=== PATIENT | male | born 1990 | race African-American/Black ===

== ENCOUNTER 2017-10-29 15:04 | Emergency (ER) | payer MEDICAID ==
[~2017-10-29] VITALS: Ht 175.3 cm; Wt 64.0 kg
[2017-10-29] MEDS ORDERED: SODIUM CHLORIDE 0.9% 1,000 ML IV ONE (15:32)
[2017-10-29] MEDS ORDERED: MIDAZOLAM HCL 2 MG/2 ML VIAL IM ONE (15:45)
[2017-10-29] MEDS ORDERED: OLANZAPINE 10 MG/VIAL IM ONE (15:45)
[2017-10-29 16:12] LABS: BASOPHILS % 0.3 % (0.0-2.0); EOSINOPHILS % 2.8 % (0.0-5.0); HEMATOCRIT. 41.7 % (42.0-52.0); HEMOGLOBIN. 14.2 g/dL (14.0-18.0); LYMPHOCYTES % 35.3 % (20.0-50.0); MEAN CORPUSCULAR HEMOGLOBIN 27.3 pg (28.0-32.0); MEAN CORPUSCULAR VOLUME 80.5 fL (80.0-94.0); MEAN PLATELET VOLUME 8.2 fl (7.4-10.4); MONOCYTES % 12.7 % (2.0-8.0); NEUTROPHILS % 48.9 % (40.0-76.0); PLATELET 196 x1000/uL (130-400); RED BLOOD CELL COUNT 5.19 mill/uL (4.7-6.1); RED CELL DISTRIBUTION WIDTH 13.8 % (11.6-14.6)
[2017-10-29 16:23] LABS: CHLORIDE 109 mEq/L (98-107); ETHANOL BLOOD < 10 mg/dL
[2017-10-29] MEDS ORDERED: HALOPERIDOL 5MG TABLET PO ONE (17:30)
[2017-10-29] MEDS ORDERED: HALOPERIDOL LACTATE 5MG/ML VIAL IM ONE ×4 (17:55→19:00)
[2017-10-29] MEDS ORDERED: LORAZEPAM 2MG/ML CPJ IM STA (18:56)
[2017-10-30] MEDS: LORAZEPAM 2MG/ML CPJ IM PRN ×2 (13:27→13:29)
[2017-10-30] MEDS ORDERED: OLANZAPINE 10 MG/VIAL IM ONE (15:15)
[2017-10-31] MEDS ORDERED: MIDAZOLAM HCL 2 MG/2 ML VIAL IM ONE (10:30)
[2017-10-31] MEDS ORDERED: OLANZAPINE 10 MG/VIAL IM ONE (10:30)
[2017-10-31] MEDS: LORAZEPAM 2MG/ML CPJ IM PRN (16:39)
[2017-10-31] MEDS ORDERED: HALOPERIDOL LACTATE 5MG/ML VIAL IM ONE (20:15)
[2017-11-01] MEDS ORDERED: HALOPERIDOL LACTATE 5MG/ML VIAL IM ONE (09:00)
[2017-11-02] MEDS: LORAZEPAM 2MG/ML CPJ IM PRN (00:57)
[2017-11-02] MEDS ORDERED: HALOPERIDOL LACTATE 5MG/ML VIAL IM SCH (02:00)
[2017-11-02] MEDS ORDERED: LORAZEPAM 2MG/ML CPJ IM PRN (02:00)
[2017-11-02] MEDS ORDERED: MIDAZOLAM HCL 2 MG/2 ML VIAL IM ONE (18:15)
[2017-11-02] MEDS ORDERED: HALOPERIDOL LACTATE 5MG/ML VIAL IM ONE (18:15)
[2017-11-02] MEDS ORDERED: BACITRACIN ZINC OINT UDPKT TOP ONE (18:30)
[2017-11-02] MEDS ORDERED: LIDOCAINE HCL 1% 20ML VIAL (Pyxis) INJ MC ONE (18:30)
[2017-11-03] MEDS ORDERED: LORAZEPAM 2MG/ML CPJ ONE (09:09)
[2017-11-03 16:00] VITALS: BP 118/64
== END 2017-11-03 19:55 | disposition home or self-care (01) ==
LOC: ER 15:15
DX: R45.1 Restlessness and agitation (principal); F84.0 Autistic disorder; F90.9 Attention-deficit hyperactivity disorder, unspecified type
CPT/HCPCS: 12011; 36415; 80048; 80307; 80329; 85025; 96372; 99285; G0482; J1630; J2060; J2250; J3490; J7030; Z7610